=== PATIENT | male | born 1960 | race African-American/Black ===

== ENCOUNTER 2018-07-12 13:10 | Inpatient (IN) | payer OTHER ==
--- NOTE | 2018-07-12 14:25 | ER Document Report ---
ED Medical Screen (RME) - General Chief Complaint: Shortness Of Breath Stated Complaint: SHORTNESS OF BREATH Time Seen by Provider: 07/12/18 14:22 Mode of Arrival: Wheelchair Information source: Patient Notes: Patient was sent here from his primary doctor office for evaluation. Patient has had shortness of breath and chest pain with exertion for the past month. Patient is continue to work full-time. Patient has a low hemoglobin of 3, according to paperwork from his doctor's office I have greeted and performed a rapid initial assessment of this patient. A comprehensive ED assessment and evaluation of the patient, analysis of test results and completion of the medical decision making process will be conducted by additional ED providers. - Related Data Allergies/Adverse Reactions: No Known Allergies Allergy (Unverified 07/12/18 13:35) Physical Exam - Vital signs Vitals: Temp Pulse Resp BP Pulse Ox 98.1 F 68 18 147/92 H 100 07/12/18 13:58 07/12/18 13:58 07/12/18 13:58 07/12/18 13:58 07/12/18 13:58 - Respiratory Respiratory status: No respiratory distress Breath sounds: Normal Chest palpation: Normal Course - Vital Signs Vital signs: Temp Pulse Resp BP Pulse Ox 98.1 F 68 18 147/92 H 100 07/12/18 13:58 07/12/18 13:58 07/12/18 13:58 07/12/18 13:58 07/12/18 13:58
--- NOTE | 2018-07-12 15:20 | ER Document Report ---
ED General - General Chief Complaint: Shortness Of Breath Stated Complaint: SHORTNESS OF BREATH Time Seen by Provider: 07/12/18 14:22 Mode of Arrival: Wheelchair Notes: Patient is a 58-year-old male with history of colon cancer status post resection that presents to the emergency department for chief complaint of dyspnea on exertion and shortness of breath. Patient states that over the past month he has been having progressively worsened shortness of breath, particular with exertion since gotten worse over the past week. He has had occasional chest tightness associated with this, but denies any chest pain at this time. Denies any nausea, vomiting, diaphoresis, denies any lightheadedness, dizziness, denies any black or tarry stools. Denies any dysuria, hematuria or any other complaints at this time. Patient apparently was at urgent care today for the symptoms, they did blood work, that demonstrated a hemoglobin of 3.9, which was concerning so they advised him to come to the emergency department to be evaluated for this. Past Medical History: Colon cancer status post resection Past Surgical History: Colon resection Social History: Denies current tobacco, alcohol or drug use. Family History: Reviewed and noncontributory for presenting illness Allergies: Reviewed, see documented allergy list. REVIEW OF SYSTEMS: Other than noted above, the 12 point review of systems was reviewed with the patient and were negative, all pertinent findings are included in the HPI. PHYSICAL EXAMINATION: Vital signs reviewed, nursing noted reviewed. GENERAL: Well-appearing, well-nourished and in no acute distress. HEAD: Atraumatic, normocephalic. EYES: Eyes appear normal, extraocular movements intact, sclera anicteric, pale conjunctiva ENT: nares patent, oropharynx clear without exudates. Moist mucous membranes. NECK: Normal range of motion, supple without lymphadenopathy LUNGS: Breath sounds clear to auscultation bilaterally and equal. No wheezes rales or rhonchi. HEART: Regular rate and rhythm without murmurs ABDOMEN: Soft, obese, nontender, normoactive bowel sounds. No rebound, guardi ng, or rigidity. No masses appreciated. EXTREMITIES: Nontender, good range of motion, no pitting or edema. NEUROLOGICAL: No focal neurological deficits. Moves all extremities spontaneously Motor and sensory grossly intact on exam. PSYCH: Normal mood, normal affect. SKIN: Warm, Dry, normal turgor, pallor noted. - Related Data Allergies/Adverse Reactions: No Known Allergies Allergy (Unverified 07/12/18 13:35) Past Medical History - General Information source: Patient - Social History Smoking Status: Never Smoker Chew tobacco use (# tins/day): No Frequency of alcohol use: None Drug Abuse: None Family History: Reviewed & Not Pertinent Patient has suicidal ideation: No Patient has homicidal ideation: No Renal/ Medical History: Denies: Hx Peritoneal Dialysis Physical Exam - Vital signs Vitals: Temp Pulse Resp BP Pulse Ox 98.1 F 68 18 147/92 H 100 07/12/18 13:58 07/12/18 13:58 07/12/18 13:58 07/12/18 13:58 07/12/18 13:58 Course - Re-evaluation Re-evalutation: Patient seen and examined vital signs reviewed. Laboratory data and imaging were ordered as appropriate for the patient's presenting symptoms and complaint, with consideration of any critical or life threatening conditions that may be associated with their obtained history and exam as noted above. Patient was treated with blood transfusion, total of 4 units ordered. Results were reviewed when available and demonstrated severe anemia of 3.8, with a low MCV, concerning for slow GI blood loss, concerning for possible recurrence of the patient's colon cancer, patient is hemodynamically stable, I do not believe this is acute GI bleeding requiring immediate intervention, however the patient will need a significant amount of blood transfused, and would advise admission, patient is not opposed to blood transfusion, and this was ordered. The rest of his evaluation was essentially unremarkable, normal chest x-ray, normal BNP, normal troponin, EKG was nonischemic. The patient was re-evaluated and was stable Evaluation was most consistent with severe microcytic anemia, concerning for slow GI blood loss. Results were discussed with the patient at this point after careful consideration I feel that that patient should be admitted to the hospital. This was discussed with the patient that it is in the best interest for their care to be admitted for further evaluation and management. Patient agreed with this plan of care. A call was placed to the admitted physician, Dr. Lomas who graciously accepted the patient onto their service. *Note is created using voice recognition software and may contain spelling, syntax or grammatical errors. Laboratory 07/12/18 07/12/18 07/12/18 15:10 15:10 15:10 WBC Cancelled RBC Cancelled Hgb Cancelled Hct Cancelled MCV Cancelled MCH Cancelled MCHC Cancelled RDW Cancelled Plt Count Cancelled Seg Neutrophils % Cancelled Lymphocytes % Cancelled Monocytes % Cancelled Eosinophils % Cancelled Basophils % Cancelled Absolute Neutrophils Cancelled Absolute Lymphocytes Cancelled Absolute Monocytes Cancelled Absolute Eosinophils Cancelled Absolute Basophils Cancelled Platelet Estimate Cancelled PT Cancelled INR Cancelled APTT Cancelled Sodium 139.9 Potassium 4.7 Chloride 106 Carbon Dioxide 26 Anion Gap 8 BUN 17 Creatinine 1.28 H Est GFR ( Amer) > 60 Est GFR (Non-Af Amer) 58 L Glucose 77 Calcium 9.1 Total Bilirubin 0.2 Direct Bilirubin 0.2 Neonat Total Bilirubin Not Reportable Neonat Direct Bilirubin Not Reportable Neonat Indirect Bili Not Reportable AST 27 ALT 33 Alkaline Phosphatase 57 Troponin I NT-Pro-B Natriuret Pep Total Protein 6.5 Albumin 3.7 Slides for Path Review Cancelled Blood Type Antibody Screen Crossmatch 07/12/18 07/12/18 07/12/18 15:10 15:10 15:30 WBC RBC Hgb Hct MCV MCH MCHC RDW Plt Count Seg Neutrophils % Lymphocytes % Monocytes % Eosinophils % Basophils % Absolute Neutrophils Absolute Lymphocytes Absolute Monocytes Absolute Eosinophils Absolute Basophils Platelet Estimate PT Cancelled INR Cancelled APTT Cancelled Sodium Potassium Chloride Carbon Dioxide Anion Gap BUN Creatinine Est GFR ( Amer) Est GFR (Non-Af Amer) Glucose Calcium Total Bilirubin Direct Bilirubin Neonat Total Bilirubin Neonat Direct Bilirubin Neonat Indirect Bili AST ALT Alkaline Phosphatase Troponin I < 0.012 NT-Pro-B Natriuret Pep 304 Total Protein Albumin Slides for Path Review Blood Type O POSITIVE Antibody Screen NEGATIVE Crossmatch See Detail 07/12/18 17:04 WBC 4.2 RBC 1.99 L Hgb 3.8 L* Hct 13.4 L* MCV 67 L MCH 19.3 L MCHC 28.7 L RDW 20.0 H Plt Count 319 Seg Neutrophils % Not Reportable Lymphocytes % Not Reportable Monocytes % Not Reportable Eosinophils % Not Reportable Basophils % Not Reportable Absolute Neutrophils Not Reportable Absolute Lymphocytes Not Reportable Absolute Monocytes Not Reportable Absolute Eosinophils Not Reportable Absolute Basophils Not Reportable Platelet Estimate PT INR APTT Sodium Potassium Chloride Carbon Dioxide Anion Gap BUN Creatinine Est GFR ( Amer) Est GFR (Non-Af Amer) Glucose Calcium Total Bilirubin Direct Bilirubin Neonat Total Bilirubin Neonat Direct Bilirubin Neonat Indirect Bili AST ALT Alkaline Phosphatase Troponin I NT-Pro-B Natriuret Pep Total Protein Albumin Slides for Path Review Blood Type Antibody Screen Crossmatch Chest X-Ray 07/12/18 14:23 IMPRESSION: 1. No acute radiographic finding in the chest. 2. Moderate size hiatal hernia. - Vital Signs Vital signs: Temp Pulse Resp BP Pulse Ox 98.1 F 68 18 147/92 H 98 07/12/18 13:58 07/12/18 13:58 07/12/18 13:58 07/12/18 13:58 07/12/18 14:23 - Laboratory Result Diagrams: 07/12/18 17:04 07/12/18 15:10 Laboratory results interpreted by me: 07/12/18 07/12/18 07/12/18 15:10 15:10 17:04 RBC 1.99 L Hgb 3.8 L* Hct 13.4 L* MCV 67 L MCH 19.3 L MCHC 28.7 L RDW 20.0 H Creatinine 1.28 H Est GFR (Non-Af Amer) 58 L Crossmatch See Detail Critical Care Note - Critical Care Note Total time excluding time spent on procedures (mins): 35 Comments: Critical care time 35 minutes exclusive from separate billable procedures for a patient requiring complex medical decision making, and high potential for clinical deterioration. In a patient with severe anemia, suspected blood loss, with Hemoccult-positive requiring large PRBC blood transfusion. Time spent obtaining history from patient or surrogate, discussions with consultants, development of treatment plan with patient or surrogate, evaluation of patient's response to treatment, examination of patient, ordering and performing treatments and interventions, ordering and review of laboratory studies, re- evaluation of patient's condition, ordering and review of radiographic studies and review of old charts Discharge - Discharge Clinical Impression: Severe anemia, Blood loss anemia, Dyspnea on exertion Condition: Stable Disposition: ADMITTED INPATIENT Admitting Provider: Abebe (Hospitalist) Unit Admitted: Telemetry
[2018-07-12 16:14] LABS: ALANINE AMINOTRANSFERASE 33 U/L (21-72); ALBUMIN 3.7 g/dL (3.5-5.0); ALKALINE PHOSPHATASE 57 U/L (38-126); ANION GAP 8 (5-19); ASPARTATE AMINO TRANSFERASE 27 U/L (17-59); BILIRUBIN,DIRECT 0.2 mg/dL (0.0-0.4); BILIRUBIN,TOTAL 0.2 mg/dL (0.2-1.3); BLOOD UREA NITROGEN 17 mg/dL (7-20); CALCIUM 9.1 mg/dL (8.4-10.2); CARBON DIOXIDE 26 mmol/L (22-30); CHLORIDE 106 mmol/L (98-107); GLUCOSE 77 mg/dL (75-110); POTASSIUM 4.7 mmol/L (3.6-5.0); SODIUM 139.9 mmol/L (137-145); TOTAL PROTEIN 6.5 g/dL (6.3-8.2)
--- NOTE | 2018-07-12 16:20 | RADIOLOGY REPORT (SQ) ---
EXAM DESCRIPTION: CHEST 2 VIEWS COMPLETED DATE/TIME: 07/12/2018 3:55 pm REASON FOR STUDY: Shortness of breath COMPARISON: None. EXAM PARAMETERS: NUMBER OF VIEWS: two views TECHNIQUE: Digital Frontal and Lateral radiographic views of the chest acquired. RADIATION DOSE: NA LIMITATIONS: none FINDINGS: LUNGS AND PLEURA: No consolidation, pneumothorax or pleural effusion. MEDIASTINUM AND HILAR STRUCTURES: No masses or contour abnormalities. HEART AND VASCULAR STRUCTURES: Heart normal size. No evidence for failure. BONES: No acute findings. HARDWARE: None in the chest. OTHER: There is a moderate size hiatal hernia. IMPRESSION: 1. No acute radiographic finding in the chest. 2. Moderate size hiatal hernia. TECHNICAL DOCUMENTATION: JOB ID: [id number] 2010 [employer]- All Rights Reserved Reading location - IP/workstation name: [email or web address]
[2018-07-12 16:24] LABS: NT PRO BNP 304 pg/mL (5-900); TROPONIN I < 0.012 ng/mL
[2018-07-12 17:26] LABS: MEAN CORPUSCULAR HEMOGLOBIN 19.3 pg (27.0-33.4); MEAN CORPUSCULAR HGB CONC 28.7 g/dL (32.0-36.0); MEAN CORPUSCULAR VOLUME 67 fl (80-97); PLATELET COUNT 319 10^3/uL (150-450); RED BLOOD COUNT 1.99 10^6/uL (4.35-5.55); WHITE BLOOD COUNT 4.2 10^3/uL (4.0-10.5)
[2018-07-12 17:27] LABS: HEMATOCRIT 13.4 % (37.9-51.0)
[2018-07-12 17:30] LABS: INTERNATIONAL RATION (INR) 0.93; PROTHROMBIN TIME 12.9 SEC (11.4-15.4)
[2018-07-12 17:31] LABS: PARTIAL THROMBOPLASTIN TIME 26.9 SEC (23.5-35.8)
[2018-07-12] MEDS ORDERED: NORMAL SALINE 250 ML IV PRN (17:31)
[2018-07-12 17:37] LABS: HEMOGLOBIN 3.8 g/dL (13.5-17.0)
[2018-07-12] MEDS ORDERED: FUROSEMIDE INJ/PF 20 MG/2 ML SDV IV ONE (18:01)
[2018-07-12] MEDS ORDERED: ACETAMINOPHEN 325 MG TABLET PO PRN (18:12)
[2018-07-12] MEDS ORDERED: ONDANSETRON HCL INJ/PF 4 MG/2 ML SDV IV PRN (18:12)
--- NOTE | 2018-07-12 18:12 | PDOC H&P ---
History of Present Illness History of Present Illness: ADELAIDA CANO is a 58 year old black male patient with past medical history of hypertension and colon cancer status post resection presented with chief complaint of 2 weeks history of shortness of breath precipitated by exertion. Shortness of breath gets worsening the last 1 week. He has also intermittent chest tightness. His blood work shows markedly reduced hemoglobin of 3.8. His stool for occult blood is also turned positive. His chest x-ray is unremarkable. CT scan of the abdomen with contrast is pending. Otherwise patient denied any chills fever cough palpitation or diaphoresis. No nausea vomiting or abdominal pain. He has dizziness but no headache or blurry vision. No seizure activity. Social History Smoking Status: Never Smoker - Advance Directive Resuscitation Status: Full Code Family History Parental Family History Reviewed: Yes Children Family History Reviewed: Yes Sibling(s) Family History Reviewed.: Yes Medication/Allergy Allergies/Adverse Reactions: No Known Allergies Allergy (Unverified 07/12/18 13:35) Review of Systems Constitutional: ABSENT: chills, fever(s), headache(s), weight gain, weight loss Eyes: ABSENT: visual disturbances Ears: ABSENT: hearing changes Cardiovascular: PRESENT: dyspnea on exertion Respiratory: ABSENT: cough, hemoptysis Gastrointestinal: ABSENT: abdominal pain, constipation, diarrhea, hematemesis, hematochezia, nausea, vomiting Genitourinary: ABSENT: dysuria, hematuria Musculoskeletal: ABSENT: joint swelling Integumentary: ABSENT: rash, wounds Neurological: PRESENT: dizziness Psychiatric: ABSENT: anxiety, depression, homidical ideation, suicidal ideation Endocrine: ABSENT: cold intolerance, heat intolerance, polydipsia, polyuria Hematologic/Lymphatic: ABSENT: easy bleeding, easy bruising Physical Exam Vital Signs: Temp Pulse Resp BP Pulse Ox 98.1 F 68 18 147/92 H 98 07/12/18 13:58 07/12/18 13:58 07/12/18 13:58 07/12/18 13:58 07/12/18 14:23 Intake & Output 07/11/18 07/12/18 07/13/18 06:59 06:59 06:59 Weight 123.5 kg Eye exam: PRESENT: conjunctiva pale Neck exam: ABSENT: carotid bruit, JVD, lymphadenopathy, thyromegaly Respiratory exam: PRESENT: clear to auscultation franklin. ABSENT: rales, rhonchi, wheezes Cardiovascular exam: PRESENT: RRR. ABSENT: diastolic murmur, rubs, systolic murmur GI/Abdominal exam: PRESENT: normal bowel sounds, soft. ABSENT: distended, guarding, mass, organolmegaly, rebound, tenderness Neurological exam: PRESENT: alert, awake, oriented to time, oriented to situation Results Laboratory Results: 07/12/18 17:04 07/12/18 15:10 07/12/18 07/12/18 07/12/18 15:10 15:10 15:10 WBC Cancelled RBC Cancelled Hgb Cancelled Hct Cancelled MCV Cancelled MCH Cancelled MCHC Cancelled RDW Cancelled Plt Count Cancelled Seg Neutrophils % Cancelled Lymphocytes % Cancelled Monocytes % Cancelled Eosinophils % Cancelled Basophils % Cancelled Absolute Neutrophils Cancelled Absolute Lymphocytes Cancelled Absolute Monocytes Cancelled Absolute Eosinophils Cancelled Absolute Basophils Cancelled Sodium 139.9 Potassium 4.7 Chloride 106 Carbon Dioxide 26 Anion Gap 8 BUN 17 Creatinine 1.28 H Est GFR ( Amer) > 60 Est GFR (Non-Af Amer) 58 L Glucose 77 Calcium 9.1 Total Bilirubin 0.2 AST 27 ALT 33 Alkaline Phosphatase 57 Total Protein 6.5 Albumin 3.7 Blood Type O POSITIVE Antibody Screen NEGATIVE 07/12/18 17:04 WBC 4.2 RBC 1.99 L Hgb 3.8 L* Hct 13.4 L* MCV 67 L MCH 19.3 L MCHC 28.7 L RDW 20.0 H Plt Count 319 Seg Neutrophils % Not Reportable Lymphocytes % Not Reportable Monocytes % Not Reportable Eosinophils % Not Reportable Basophils % Not Reportable Absolute Neutrophils Not Reportable Absolute Lymphocytes Not Reportable Absolute Monocytes Not Reportable Absolute Eosinophils Not Reportable Absolute Basophils Not Reportable Sodium Potassium Chloride Carbon Dioxide Anion Gap BUN Creatinine Est GFR ( Amer) Est GFR (Non-Af Amer) Glucose Calcium Total Bilirubin AST ALT Alkaline Phosphatase Total Protein Albumin Blood Type Antibody Screen 07/12/18 15:10 Troponin I < 0.012 NT-Pro-B Natriuret Pep 304 Impressions: Chest X-Ray 07/12/18 14:23 IMPRESSION: 1. No acute radiographic finding in the chest. 2. Moderate size hiatal hernia. Assessment and Plan - Diagnosis (1) Acute on chronic blood loss anemia Is this a current diagnosis for this admission?: Yes Plan: His stool for occult blood is positive. His hemoglobin is 3.8. We will transfuse 2 units of packed RBC. We will trend his H&H. Patient might have recurrence of his CA of the colon. We will consult GI for possible colonoscopy. (2) GI (gastrointestinal bleed) Is this a current diagnosis for this admission?: Yes Plan: Most probably lower GI bleeding. (3) Hx of colon CA status post resection Is this a current diagnosis for this admission?: Yes Plan: In light of severe anemia and stool positive for occult blood the chance of recurrence of colitis is possible. CT scan of the abdomen is pending GI will be consulted. (4) Hypertension Qualifiers: Hypertension type: essential hypertension Qualified Code(s): I10 - Essential (primary) hypertension Is this a current diagnosis for this admission?: Yes Plan: Continue home medication. (5) Obesity (BMI 35.0-39.9 without comorbidity) Is this a current diagnosis for this admission?: Yes Plan: Lifestyle modification advised.
[2018-07-12 18:46] LABS: ABSOLUTE LYMPHOCYTES# (MANUAL) 1.8 10^3/uL (0.5-4.7); ABSOLUTE MONOCYTES # (MANUAL) 0.5 10^3/uL (0.1-1.4); ABSOLUTE NEUTROPHILS# (MANUAL) 1.9 10^3/uL (1.7-8.2); BAND NEUTROPHILS % (MANUAL) 1 % (3-5); BASOPHILS % (MANUAL) 2 % (0-2); EOSINOPHILS % (MANUAL) 0 % (0-6); LYMPHOCYTES % (MANUAL) 40 % (13-45); MONOCYTES % (MANUAL) 11 % (3-13); NUCLEATED RED BLOOD CELLS 1 /100 WBC (0); SEGMENTED NEUTROPHILS % (MAN) 44 % (42-78); TOTAL CELLS COUNTED 100
[2018-07-12 18:48] LABS: ANISOCYTOSIS 2+; HYPOCHROMASIA 3+; OVALOCYTES 1+; PLATELET COMMENT ADEQUATE; POLYCHROMASIA SLIGHT; SCHISTOCYTES SLIGHT; TEAR DROP CELLS 1+
--- NOTE | 2018-07-12 20:58 | RADIOLOGY REPORT (SQ) ---
CT ABDOMEN PELVIS WITH IV CONTRAST HISTORY: Abdominal pain. Severe anemia. History of colon cancer. COMPARISON: None. TECHNIQUE: CT scan of the abdomen and pelvis was performed with IV contrast. This exam was performed according to our departmental dose-optimization program, which includes automated exposure control, adjustment of the mA and/or kV according to patient size and/or use of iterative reconstruction technique. FINDINGS: The lung bases are clear without pleural or pericardial effusions. There is a moderate-sized sliding hiatal hernia. The liver, spleen, pancreas, gallbladder, adrenal glands, and kidneys are normal with a simple cyst in the right kidney. The prostate gland and seminal vesicles are unremarkable. Query mild wall thickening of the urinary bladder. There is a ventral hernia which contains portions of small bowel but without evidence of obstruction or incarceration. No evidence of acute diverticulitis. No intraperitoneal free fluid or free air is seen. Mild degenerative disc disease at L5-S1. No acute bony findings are seen. The aorta is normal caliber. IMPRESSION: 1. Ventral hernia containing small bowel loops but without bowel obstruction or incarceration. 2. Query mild inflammatory changes surrounding the urinary bladder; correlate with urinalysis to exclude UTI. 3. Moderate sliding hiatal hernia.
[2018-07-12] MEDS: PANTOPRAZOLE SODIUM 40 MG VIAL IV SCH (22:05)
--- NOTE | 2018-07-12 22:33 | EKG REPORT ---
SEVERITY:- BORDERLINE ECG - SINUS RHYTHM BORDERLINE T ABNORMALITIES, LATERAL LEADS : Confirmed by: Bianka Granados MD 12-Jul-2018 22:32:37
[2018-07-12] MEDS ORDERED: DEXTROSE 40% GEL 15 GM TUBE PO PRN ×2 (22:46)
[2018-07-12] MEDS ORDERED: GLUCAGON,HUMAN RECOMB 1 MG INJ SUBCUT PRN (22:46)
[2018-07-12] MEDS ORDERED: DEXTROSE 50%-WATER 25 GM/50 ML DISP.SYRIN IV PRN ×2 (22:46)
--- NOTE | 2018-07-13 00:18 | PDOC CONSULTATION ---
Consultation Consult Date: 07/12/18 Provider Consulted: DIANA WILLIAMSON Consult reason:: anemia with guiac positive stool History of Present Illness Admission Date/PCP: 07/12/18 18:27 History of Present Illness: ADELAIDA CANO is a 58 year old male who had colon carcinoma resected in 02/16/2017 in [place]. Had an attempted colon surgery in 12/12/2016 but had cardiac arrest during the procedure. He was resuscitated and the operation was aborted. After the colon resection, he was told that he was "cured". About a month ago, started getting progressively short winded with associated tachycardia and "burning" sensation on his left chest. Today went to an urgent care and referred to ED when noted to have a Hgb of 3.9. This was repeated and confirmed Hgb of 3.8. His stool is guiac positive. He denies gross blood in his stool nor dark stools though he does'nt usually check them. He is not on any blood thinner. Denies fever,chills, cough,headache nor dysuria or lightheadedness. Past Surgical History Past Surgical History: Reports: Other - colon resection for Carcinoma Social History Smoking Status: Former Smoker Number of Years Smokin Last Time Smoked: 03/05/2009 Frequency of Alcohol Use: Occasional Hx Recreational Drug Use: No Hx Prescription Drug Abuse: No - Advance Directive Resuscitation Status: Full Code Family History Family History: Reviewed & Not Pertinent Parental Family History Reviewed: Yes - mother of CVA and father from prostate CA both in their 80's Children Family History Reviewed: No Sibling(s) Family History Reviewed.: No Medication/Allergy Home Medications: Aspirin [Ecotrin 81 mg EC Tablet] 81 mg PO DAILY 07/12/18 Garlic 1 each PO DAILY 07/12/18 Potassium Gluconate 500 mg PO DAILY 07/12/18 Vitamin B Complex [B Complex] 1 each PO DAILY 07/12/18 Allergies/Adverse Reactions: No Known Allergies Allergy (Unverified 07/12/18 13:35) Review of Systems Constitutional: PRESENT: as per HPI Neurological: PRESENT: other - no pains Physical Exam Vital Signs: Temp Pulse Resp BP Pulse Ox 98.3 F 72 16 144/82 H 97 07/12/18 22:30 07/12/18 22:30 07/12/18 22:30 07/12/18 22:30 07/12/18 22:30 Intake & Output 07/11/18 07/12/18 07/13/18 06:59 06:59 06:59 Intake Total 350 Balance 350 Weight 123.5 kg General appearance: PRESENT: no acute distress, obese Head exam: PRESENT: atraumatic Eye exam: PRESENT: conjunctiva pale Mouth exam: PRESENT: moist Neck exam: PRESENT: full ROM Respiratory exam: PRESENT: clear to auscultation franklin Cardiovascular exam: PRESENT: RRR Pulses: PRESENT: normal radial pulses Vascular exam: PRESENT: normal capillary refill GI/Abdominal exam: PRESENT: soft - non tender Has a reducible incisional hernia non tender Rectal exam: PRESENT: heme (-) stool Extremities exam: PRESENT: full ROM Musculoskeletal exam: PRESENT: ambulatory Neurological exam: PRESENT: alert, oriented to person, oriented to place, oriented to time, oriented to situation Psychiatric exam: PRESENT: appropriate affect Skin exam: PRESENT: normal color, warm Results Laboratory Results: 07/12/18 17:04 07/12/18 15:10 07/12/18 07/12/18 07/12/18 15:10 15:10 15:10 WBC Cancelled RBC Cancelled Hgb Cancelled Hct Cancelled MCV Cancelled MCH Cancelled MCHC Cancelled RDW Cancelled Plt Count Cancelled Seg Neutrophils % Cancelled Lymphocytes % Cancelled Monocytes % Cancelled Eosinophils % Cancelled Basophils % Cancelled Absolute Neutrophils Cancelled Absolute Lymphocytes Cancelled Absolute Monocytes Cancelled Absolute Eosinophils Cancelled Absolute Basophils Cancelled Sodium 139.9 Potassium 4.7 Chloride 106 Carbon Dioxide 26 Anion Gap 8 BUN 17 Creatinine 1.28 H Est GFR ( Amer) > 60 Est GFR (Non-Af Amer) 58 L Glucose 77 Calcium 9.1 Total Bilirubin 0.2 AST 27 ALT 33 Alkaline Phosphatase 57 Total Protein 6.5 Albumin 3.7 Blood Type O POSITIVE Antibody Screen NEGATIVE 07/12/18 17:04 WBC 4.2 RBC 1.99 L Hgb 3.8 L* Hct 13.4 L* MCV 67 L MCH 19.3 L MCHC 28.7 L RDW 20.0 H Plt Count 319 Seg Neutrophils % Not Reportable Lymphocytes % Not Reportable Monocytes % Not Reportable Eosinophils % Not Reportable Basophils % Not Reportable Absolute Neutrophils Not Reportable Absolute Lymphocytes Not Reportable Absolute Monocytes Not Reportable Absolute Eosinophils Not Reportable Absolute Basophils Not Reportable Sodium Potassium Chloride Carbon Dioxide Anion Gap BUN Creatinine Est GFR ( Amer) Est GFR (Non-Af Amer) Glucose Calcium Total Bilirubin AST ALT Alkaline Phosphatase Total Protein Albumin Blood Type Antibody Screen 07/12/18 15:10 Troponin I < 0.012 NT-Pro-B Natriuret Pep 304 Impressions: Abdomen/Pelvis CT 07/12/18 00:00 IMPRESSION: 1. Ventral hernia containing small bowel loops but without bowel obstruction or incarceration. 2. Query mild inflammatory changes surrounding the urinary bladder; correlate with urinalysis to exclude UTI. 3. Moderate sliding hiatal hernia. Chest X-Ray 07/12/18 14:23 IMPRESSION: 1. No acute radiographic finding in the chest. 2. Moderate size hiatal hernia. Assessment & Plan - Diagnosis (1) Acute on chronic blood loss anemia Is this a current diagnosis for this admission?: Yes (2) GI (gastrointestinal bleed) Is this a current diagnosis for this admission?: Yes (3) Hx of colon CA status post resection Is this a current diagnosis for this admission?: Yes (4) Obesity (BMI 35.0-39.9 without comorbidity) Is this a current diagnosis for this admission?: Yes (5) Severe anemia Is this a current diagnosis for this admission?: Yes - Time Time Spent: 30 to 50 Minutes - Inpatient Certification Medical Necessity: Need Close Monitoring Due to Risk of Patient Decompensation, Need For IV Fluids, Risk of Complication if Not Cared For in Hospital - Plan Summary Plan Summary: Patient has chronic slow GI bleed causing his severe microcytic anemia Will be transfused Will eventually need at least a colonoscopy but no emergent need at this time Will inform Dr Vaughan tomorrow. Will need a bowel prep prior to colonoscopy OK to give clear liquids at this time
[2018-07-13] MEDS ORDERED: FUROSEMIDE INJ/PF 20 MG/2 ML SDV IV ONE (02:30)
[2018-07-13 06:09] LABS: ANION GAP 7 (5-19); BLOOD UREA NITROGEN 15 mg/dL (7-20); CALCIUM 9.2 mg/dL (8.4-10.2); CARBON DIOXIDE 28 mmol/L (22-30); CHLORIDE 105 mmol/L (98-107); CHOLESTEROL 144.46 mg/dL (0-200); GLUCOSE 85 mg/dL (75-110); POTASSIUM 4.7 mmol/L (3.6-5.0); SODIUM 140.4 mmol/L (137-145); TRIGLYCERIDES 90 mg/dL (<150)
[2018-07-13 06:20] LABS: DIRECT LDL 75 mg/dL (<100)
[2018-07-13] MEDS ORDERED: DEXTROSE 50%-WATER 25 GM/50 ML DISP.SYRIN IV PRN ×2 (09:06)
[2018-07-13] MEDS ORDERED: GLUCAGON,HUMAN RECOMB 1 MG INJ SUBCUT PRN (09:06)
[2018-07-13] MEDS ORDERED: DEXTROSE 40% GEL 15 GM TUBE PO PRN ×2 (09:06)
[2018-07-13 09:36] LABS: HEMATOCRIT 23.2 % (37.9-51.0); MEAN CORPUSCULAR HGB CONC 31.4 g/dL (32.0-36.0); PLATELET COUNT 297 10^3/uL (150-450); RED BLOOD COUNT 3.18 10^6/uL (4.35-5.55); RED CELL DISTRIBUTION WIDTH 22.2 % (11.5-14.0); WHITE BLOOD COUNT 4.8 10^3/uL (4.0-10.5)
[2018-07-13 09:39] LABS: MEAN CORPUSCULAR VOLUME 73 fl (80-97)
[2018-07-13 09:55] LABS: HEMOGLOBIN 7.3 g/dL (13.5-17.0)
[2018-07-13] MEDS ORDERED: PEG 3350/NA SULF,BICARB,CL/KCL 4000 ML PO ONE (10:00)
--- NOTE | 2018-07-13 11:05 | PDOC PROGRESS REPORT ---
Subjective Progress Note for:: 07/13/18 Subjective:: ADELAIDA CANO is a 58 year old male who had colon carcinoma resected in 02/16/2017 in [place]. Had an attempted colon surgery in 12/12/2016 but had cardiac arrest during the procedure. He was resuscitated and the operation was aborted. After the colon resection, he was told that he was "cured". About a month ago, started getting progressively short winded with associated tachycardia and "burning" sensation on his left chest. Today went to an urgent care and referred to ED when noted to have a Hgb of 3.9. This was repeated and confirmed Hgb of 3.8. His stool is guiac positive. He denies gross blood in his stool nor dark stools though he does'nt usually check them. He is not on any blood thinner. Denies fever,chills, cough,headache nor dysuria or lightheadedne ss. 07/13/2018. No acute events overnight. Patient status post 3 PRBC transfusion hemoglobin has trended up to 7.3, pending another rest PRBC transfusion. Most of breath have improved, patient denies any fever, chills, nausea, vomiting, diarrhea, constipation or any urinary symptoms. Surgery has been consulted patient will possibly get an colonoscopy tomorrow. Note: Pt was seen by Dr Helms. Will go ahead and cancel my note Reason For Visit: SEVERE ANEMIA Physical Exam Vital Signs: Temp Pulse Resp BP Pulse Ox 98.4 F 68 18 153/83 H 100 07/13/18 08:20 07/13/18 08:20 07/13/18 08:20 07/13/18 08:20 07/13/18 08:20 Intake & Output 07/12/18 07/13/18 07/14/18 06:59 06:59 06:59 Intake Total 790 450 Output Total 400 Balance 390 450 Weight 123.6 kg General appearance: PRESENT: no acute distress, obese, well-developed, well- nourished Head exam: PRESENT: atraumatic, normocephalic Eye exam: PRESENT: conjunctiva pink, EOMI, PERRLA. ABSENT: scleral icterus Ear exam: PRESENT: normal external ear exam Mouth exam: PRESENT: moist, tongue midline Neck exam: ABSENT: carotid bruit, JVD, lymphadenopathy, thyromegaly Respiratory exam: PRESENT: clear to auscultation franklin. ABSENT: rales, rhonchi, wheezes Cardiovascular exam: PRESENT: RRR. ABSENT: diastolic murmur, rubs, systolic murmur Pulses: PRESENT: normal dorsalis pedis pul Vascular exam: PRESENT: normal capillary refill GI/Abdominal exam: PRESENT: normal bowel sounds, soft. ABSENT: distended, guarding, mass, organolmegaly, rebound, tenderness Rectal exam: PRESENT: deferred Extremities exam: PRESENT: full ROM. ABSENT: calf tenderness, clubbing, pedal edema Neurological exam: PRESENT: alert, awake, oriented to person, oriented to place, oriented to time, oriented to situation, CN II-XII grossly intact. ABSENT: motor sensory deficit Psychiatric exam: PRESENT: appropriate affect, normal mood. ABSENT: homicidal ideation, suicidal ideation Skin exam: PRESENT: dry, intact, warm. ABSENT: cyanosis, rash Results Laboratory Results: 07/13/18 09:13 07/13/18 05:17 07/12/18 07/12/18 07/12/18 15:10 15:10 15:10 WBC Cancelled RBC Cancelled Hgb Cancelled Hct Cancelled MCV Cancelled MCH Cancelled MCHC Cancelled RDW Cancelled Plt Count Cancelled Seg Neutrophils % Cancelled Lymphocytes % Cancelled Monocytes % Cancelled Eosinophils % Cancelled Basophils % Cancelled Absolute Neutrophils Cancelled Absolute Lymphocytes Cancelled Absolute Monocytes Cancelled Absolute Eosinophils Cancelled Absolute Basophils Cancelled Sodium 139.9 Potassium 4.7 Chloride 106 Carbon Dioxide 26 Anion Gap 8 BUN 17 Creatinine 1.28 H Est GFR ( Amer) > 60 Est GFR (Non-Af Amer) 58 L Glucose 77 Calcium 9.1 Total Bilirubin 0.2 AST 27 ALT 33 Alkaline Phosphatase 57 Total Protein 6.5 Albumin 3.7 Triglycerides Cholesterol LDL Cholesterol Direct VLDL Cholesterol HDL Cholesterol Blood Type O POSITIVE Antibody Screen NEGATIVE 07/12/18 07/13/18 07/13/18 17:04 05:17 09:13 WBC 4.2 4.8 RBC 1.99 L 3.18 L Hgb 3.8 L* 7.3 L D Hct 13.4 L* 23.2 L MCV 67 L 73 L D MCH 19.3 L 23.0 L MCHC 28.7 L 31.4 L RDW 20.0 H 22.2 H Plt Count 319 297 Seg Neutrophils % Not Reportable Lymphocytes % Not Reportable Monocytes % Not Reportable Eosinophils % Not Reportable Basophils % Not Reportable Absolute Neutrophils Not Reportable Absolute Lymphocytes Not Reportable Absolute Monocytes Not Reportable Absolute Eosinophils Not Reportable Absolute Basophils Not Reportable Sodium 140.4 Potassium 4.7 Chloride 105 Carbon Dioxide 28 Anion Gap 7 BUN 15 Creatinine 1.28 H Est GFR ( Amer) > 60 Est GFR (Non-Af Amer) 58 L Glucose 85 Calcium 9.2 Total Bilirubin AST ALT Alkaline Phosphatase Total Protein Albumin Triglycerides 90 Cholesterol 144.46 LDL Cholesterol Direct 75 VLDL Cholesterol 18.0 HDL Cholesterol 40 Blood Type Antibody Screen 07/12/18 15:10 Troponin I < 0.012 NT-Pro-B Natriuret Pep 304 Impressions: Abdomen/Pelvis CT 07/12/18 00:00 IMPRESSION: 1. Ventral hernia containing small bowel loops but without bowel obstruction or incarceration. 2. Query mild inflammatory changes surrounding the urinary bladder; correlate with urinalysis to exclude UTI. 3. Moderate sliding hiatal hernia. Chest X-Ray 07/12/18 14:23 IMPRESSION: 1. No acute radiographic finding in the chest. 2. Moderate size hiatal hernia. Assessment and Plan - Diagnosis (1) Acute on chronic blood loss anemia Is this a current diagnosis for this admission?: Yes Plan: Most likely chronic GI bleed. Hemoglobin on admission 3.8. Stool guaiac positive. Patient does not know if he has melanotic stool as he has not checked his stool. Denies hematemesis, hemoptysis, hematuria, hematochezia, nosebleeds or any bleeding tendency. 07/13/2018: Hgb 7.3 up from 3.8 on admission status post 3 PRBC transfusion History of colonic cancer status post resection. 07/12/2018: CT abdomen/pelvis: 1. Ventral hernia containing small bowel loops but without bowel obstruction or incarceration. 2. Query mild inflammatory changes surrounding the urinary bladder; correlate with urinalysis to exclude UTI. 3. Moderate sliding hiatal hernia. Pending 1 PRBC transfusion. H&H, supportive transfusion, keep hemoglobin above 8. Surgery consult, possible endoscopy/colonoscopy. (2) KELLY (acute kidney injury) Is this a current diagnosis for this admission?: Yes Plan: No previous records available. Patient does have history of hypertension which may be a contributor. Denies nephrotoxic meds intake. 07/13/2018: Sodium 140.4 potassium 4.7, bicarb 28, creatinine 1.28, A1c 4.9%, Renal Ultrasound, FeNa. IV fluid resuscitation guided by volume status. If does not improve will consult nephrology. (3) GI (gastrointestinal bleed) Is this a current diagnosis for this admission?: Yes Plan: As per problem #1. (4) Hx of colon CA status post resection Is this a current diagnosis for this admission?: Yes Plan: History of colonic cancer status post resection. As per patient he was told he has been cured. Patient oncology/GI follow-up. 07/12/2018: CT abdomen/pelvis: 1. Ventral hernia containing small bowel loops but without bowel obstruction or incarceration. 2. Query mild inflammatory changes surrounding the urinary bladder; correlate with urinalysis to exclude UTI. 3. Moderate sliding hiatal hernia. (5) Hypertension Qualifiers: Hypertension type: essential hypertension Qualified Code(s): I10 - Essential (primary) hypertension Is this a current diagnosis for this admission?: Yes Plan: Euvolemic. SBP 392212 Start on hydrochlorothiazide 25 mg p.o. daily. Monitor vitals, adjust dosage as needed. Note: Lipid panel and A1c within normal limits. (6) Obesity (BMI 35.0-39.9 without comorbidity) Is this a current diagnosis for this admission?: Yes Plan: Lifestyle modification advised. Note: Lipid panel and hemoglobin A1c within normal limits.
[2018-07-13] MEDS ORDERED: NORMAL SALINE 250 ML IV PRN ×2 (11:08)
--- NOTE | 2018-07-13 11:13 | PDOC PROGRESS REPORT ---
Subjective Progress Note for:: 07/13/18 Subjective:: Patient has no complaints; has received 3 units of packed red blood cells patient denies blood per rectum or hematemesis; he states he does not inspect his stools. He is 2 years status post colon resection, partial, in [place] for early stage cancer; records are available electronically. Patient has not had surveillance colonoscopy since then. Reason For Visit: SEVERE ANEMIA Physical Exam Vital Signs: Temp Pulse Resp BP Pulse Ox 98.4 F 68 18 153/83 H 100 07/13/18 08:20 07/13/18 08:20 07/13/18 08:20 07/13/18 08:20 07/13/18 08:20 Intake & Output 07/12/18 07/13/18 07/14/18 06:59 06:59 06:59 Intake Total 790 450 Output Total 400 Balance 390 450 Weight 123.6 kg General appearance: PRESENT: no acute distress GI/Abdominal exam: PRESENT: other - Abdomen soft nontender well-healed are consistent with previous surgery. No apparent hernia. Results Laboratory Results: 07/13/18 09:13 07/13/18 05:17 07/12/18 07/12/18 07/12/18 15:10 15:10 15:10 WBC Cancelled RBC Cancelled Hgb Cancelled Hct Cancelled MCV Cancelled MCH Cancelled MCHC Cancelled RDW Cancelled Plt Count Cancelled Seg Neutrophils % Cancelled Lymphocytes % Cancelled Monocytes % Cancelled Eosinophils % Cancelled Basophils % Cancelled Absolute Neutrophils Cancelled Absolute Lymphocytes Cancelled Absolute Monocytes Cancelled Absolute Eosinophils Cancelled Absolute Basophils Cancelled Sodium 139.9 Potassium 4.7 Chloride 106 Carbon Dioxide 26 Anion Gap 8 BUN 17 Creatinine 1.28 H Est GFR ( Amer) > 60 Est GFR (Non-Af Amer) 58 L Glucose 77 Calcium 9.1 Total Bilirubin 0.2 AST 27 ALT 33 Alkaline Phosphatase 57 Total Protein 6.5 Albumin 3.7 Triglycerides Cholesterol LDL Cholesterol Direct VLDL Cholesterol HDL Cholesterol Blood Type O POSITIVE Antibody Screen NEGATIVE 07/12/18 07/13/18 07/13/18 17:04 05: 09:13 WBC 4.2 4.8 RBC 1.99 L 3.18 L Hgb 3.8 L* 7.3 L D Hct 13.4 L* 23.2 L MCV 67 L 73 L D MCH 19.3 L 23.0 L MCHC 28.7 L 31.4 L RDW 20.0 H 22.2 H Plt Count 319 297 Seg Neutrophils % Not Reportable Lymphocytes % Not Reportable Monocytes % Not Reportable Eosinophils % Not Reportable Basophils % Not Reportable Absolute Neutrophils Not Reportable Absolute Lymphocytes Not Reportable Absolute Monocytes Not Reportable Absolute Eosinophils Not Reportable Absolute Basophils Not Reportable Sodium 140.4 Potassium 4.7 Chloride 105 Carbon Dioxide 28 Anion Gap 7 BUN 15 Creatinine 1.28 H Est GFR ( Amer) > 60 Est GFR (Non-Af Amer) 58 L Glucose 85 Calcium 9.2 Total Bilirubin AST ALT Alkaline Phosphatase Total Protein Albumin Triglycerides 90 Cholesterol 144.46 LDL Cholesterol Direct 75 VLDL Cholesterol 18.0 HDL Cholesterol 40 Blood Type Antibody Screen 07/12/18 15:10 Troponin I < 0.012 NT-Pro-B Natriuret Pep 304 Impressions: Abdomen/Pelvis CT 07/12/18 00:00 IMPRESSION: 1. Ventral hernia containing small bowel loops but without bowel obstruction or incarceration. 2. Query mild inflammatory changes surrounding the urinary bladder; correlate with urinalysis to exclude UTI. 3. Moderate sliding hiatal hernia. Chest X-Ray 07/12/18 14:23 IMPRESSION: 1. No acute radiographic finding in the chest. 2. Moderate size hiatal hernia. Assessment & Plan - Plan Summary Plan Summary: Impression: Severe anemia presumably from occult GI bleed, hemodynamically stable, hemoglobin now up to 7.3 from 3.8 after 3 units of packed red blood cells. Recommendations: 1. Discussed findings above with patient. He agrees undergo upper and lower endoscopy; we will set this up for tomorrow with a complete bowel prep today. He can be on clear liquids, then n.p.o. after midnight. 2. I have reviewed the risk benefits and alternatives to the planned procedure. Expressed his understanding and agrees to proceed.
[2018-07-13] MEDS ORDERED: DEXTROSE 5%-NORMAL SALINE 1,000 ML IV PRN (11:17)
[2018-07-13] MEDS: DOCUSATE SODIUM 100 MG CAPSULE PO SCH ×2 (11:28→18:40)
[2018-07-13] MEDS: PANTOPRAZOLE SODIUM 40 MG VIAL IV SCH ×2 (11:28→21:39)
[2018-07-13] MEDS: HYDROCHLOROTHIAZIDE 25 MG TABLET PO SCH (12:34)
--- NOTE | 2018-07-13 13:12 | PDOC PROGRESS REPORT ---
Subjective Progress Note for:: 07/13/18 Subjective:: This is 58 years old black male patient who presented with chronic history of shortness of breath precipitated by exertion. Patient does not have any underlying cardiac or pulmonary disease. His past medical history significant for hypertension and early stage colon CA status post partial colectomy which was done 2 years ago. He states that he is "cancer free". At presentation his hemoglobin is 3.8 and after 3 units of PRBC his hemoglobin picked up to 7.3. He is a stool for occult blood is positive. Dr. Holley has evaluated the patient and schedule him for upper endoscopy and colonoscopy tomorrow. I seen patient resting in bed comfortably. He reports his shortness of breath has relatively improved. Reason For Visit: SEVERE ANEMIA Physical Exam Vital Signs: Temp Pulse Resp BP Pulse Ox 99 F 64 16 157/87 H 100 07/13/18 11:54 07/13/18 11:54 07/13/18 11:54 07/13/18 11:54 07/13/18 11:54 Intake & Output 07/12/18 07/13/18 07/14/18 06:59 06:59 06:59 Intake Total 790 450 Output Total 400 Balance 390 450 Weight 123.6 kg General appearance: PRESENT: obese Head exam: PRESENT: atraumatic Eye exam: PRESENT: conjunctiva pale Teeth exam: PRESENT: poor dentation Respiratory exam: PRESENT: clear to auscultation franklin. ABSENT: rales, rhonchi, wheezes Cardiovascular exam: PRESENT: RRR. ABSENT: diastolic murmur, rubs, systolic murmur GI/Abdominal exam: PRESENT: normal bowel sounds, soft. ABSENT: distended, guarding, mass, organolmegaly, rebound, tenderness Neurological exam: PRESENT: alert, awake, oriented to time, oriented to situation Results Laboratory Results: 07/13/18 09:13 07/13/18 05:17 07/12/18 07/12/18 07/12/18 15:10 15:10 15:10 WBC Cancelled RBC Cancelled Hgb Cancelled Hct Cancelled MCV Cancelled MCH Cancelled MCHC Cancelled RDW Cancelled Plt Count Cancelled Seg Neutrophils % Cancelled Lymphocytes % Cancelled Monocytes % Cancelled Eosinophils % Cancelled Basophils % Cancelled Absolute Neutrophils Cancelled Absolute Lymphocytes Cancelled Absolute Monocytes Cancelled Absolute Eosinophils Cancelled Absolute Basophils Cancelled Sodium 139.9 Potassium 4.7 Chloride 106 Carbon Dioxide 26 Anion Gap 8 BUN 17 Creatinine 1.28 H Est GFR ( Amer) > 60 Est GFR (Non-Af Amer) 58 L Glucose 77 Calcium 9.1 Total Bilirubin 0.2 AST 27 ALT 33 Alkaline Phosphatase 57 Total Protein 6.5 Albumin 3.7 Triglycerides Cholesterol LDL Cholesterol Direct VLDL Cholesterol HDL Cholesterol Blood Type O POSITIVE Antibody Screen NEGATIVE 07/12/18 07/13/18 07/13/18 17:04 05:17 09:13 WBC 4.2 4.8 RBC 1.99 L 3.18 L Hgb 3.8 L* 7.3 L D Hct 13.4 L* 23.2 L MCV 67 L 73 L D MCH 19.3 L 23.0 L MCHC 28.7 L 31.4 L RDW 20.0 H 22.2 H Plt Count 319 297 Seg Neutrophils % Not Reportable Lymphocytes % Not Reportable Monocytes % Not Reportable Eosinophils % Not Reportable Basophils % Not Reportable Absolute Neutrophils Not Reportable Absolute Lymphocytes Not Reportable Absolute Monocytes Not Reportable Absolute Eosinophils Not Reportable Absolute Basophils Not Reportable Sodium 140.4 Potassium 4.7 Chloride 105 Carbon Dioxide 28 Anion Gap 7 BUN 15 Creatinine 1.28 H Est GFR ( Amer) > 60 Est GFR (Non-Af Amer) 58 L Glucose 85 Calcium 9.2 Total Bilirubin AST ALT Alkaline Phosphatase Total Protein Albumin Triglycerides 90 Cholesterol 144.46 LDL Cholesterol Direct 75 VLDL Cholesterol 18.0 HDL Cholesterol 40 Blood Type Antibody Screen 07/12/18 15:10 Troponin I < 0.012 NT-Pro-B Natriuret Pep 304 Impressions: Abdomen/Pelvis CT 07/12/18 00:00 IMPRESSION: 1. Ventral hernia containing small bowel loops but without bowel obstruction or incarceration. 2. Query mild inflammatory changes surrounding the urinary bladder; correlate with urinalysis to exclude UTI. 3. Moderate sliding hiatal hernia. Chest X-Ray 07/12/18 14:23 IMPRESSION: 1. No acute radiographic finding in the chest. 2. Moderate size hiatal hernia. Assessment and Plan - Diagnosis (1) Acute on chronic blood loss anemia Is this a current diagnosis for this admission?: Yes Plan: Status post 3 packed RBC transfusion. Hemoglobin peaked up to 7.3. Patient scheduled for upper and lower endoscopy. (2) GI (gastrointestinal bleed) Is this a current diagnosis for this admission?: Yes Plan: As per problem #1. (3) Hx of colon CA status post resection Is this a current diagnosis for this admission?: Yes Plan: History of colonic cancer status post resection. As per patient he was told he has been cured. Patient oncology/GI follow-up. 07/12/2018: CT abdomen/pelvis: 1. Ventral hernia containing small bowel loops but without bowel obstruction or incarceration. 2. Query mild inflammatory changes surrounding the urinary bladder; correlate with urinalysis to exclude UTI. 3. Moderate sliding hiatal hernia. (4) Hypertension Qualifiers: Hypertension type: essential hypertension Qualified Code(s): I10 - Essential (primary) hypertension Is this a current diagnosis for this admission?: Yes Plan: Euvolemic. SBP [id number] Start on hydrochlorothiazide 25 mg p.o. daily. Monitor vitals, adjust dosage as needed. Note: Lipid panel and A1c within normal limits. (5) Obesity (BMI 35.0-39.9 without comorbidity) Is this a current diagnosis for this admission?: Yes Plan: Lifestyle modification advised. Note: Lipid panel and hemoglobin A1c within normal limits.
--- NOTE | 2018-07-13 16:42 | RADIOLOGY REPORT (SQ) ---
EXAM DESCRIPTION: U/S RETROPERITON (RENAL/AORTA) COMPLETED DATE/TIME: 07/13/2018 4:28 pm REASON FOR STUDY: KELLY COMPARISON: CT abdomen pelvis with IV contrast 07/12/2018 TECHNIQUE: Dynamic and static grayscale images acquired of the kidneys and bladder and recorded on P ACS. Additional selected color Doppler and spectral images recorded. LIMITATIONS: Patient body habitus FINDINGS: RIGHT KIDNEY: Normal size, 10 cm in length. Normal echogenicity. No solid or suspicious ma sses. No hydronephrosis. No calcifications. LEFT KIDNEY: Normal size, 11 cm in length. Normal echogenicity. No solid or suspicious masses. No hy dronephrosis. No calcifications. BLADDER: Decompressed, not well seen OTHER FINDINGS: No other significant finding. IMPRESSION: No hydronephrosis, normal size kidneys with grossly normal cortical thickness and echoge nicity TECHNICAL DOCUMENTATION: JOB ID: [id number] [employer]- All Rights Reserved Reading location - IP/workstation name: [email or web address]
[2018-07-13 17:53] LABS: HEMATOCRIT 27.3 % (37.9-51.0); HEMOGLOBIN 8.7 g/dL (13.5-17.0); MEAN CORPUSCULAR HEMOGLOBIN 23.9 pg (27.0-33.4); MEAN CORPUSCULAR HGB CONC 31.8 g/dL (32.0-36.0); MEAN CORPUSCULAR VOLUME 75 fl (80-97); PLATELET COUNT 300 10^3/uL (150-450); RED BLOOD COUNT 3.62 10^6/uL (4.35-5.55); RED CELL DISTRIBUTION WIDTH 23.1 % (11.5-14.0); WHITE BLOOD COUNT 5.6 10^3/uL (4.0-10.5)
[2018-07-13 18:21] LABS: ABSOLUTE LYMPHOCYTES# (MANUAL) 1.3 10^3/uL (0.5-4.7); ABSOLUTE MONOCYTES # (MANUAL) 0.1 10^3/uL (0.1-1.4); ABSOLUTE NEUTROPHILS# (MANUAL) 4.2 10^3/uL (1.7-8.2); BASOPHILS % (MANUAL) 0 % (0-2); EOSINOPHILS % (MANUAL) 0 % (0-6); LYMPHOCYTES % (MANUAL) 23 % (13-45); MONOCYTES % (MANUAL) 2 % (3-13); NUCLEATED RED BLOOD CELLS 1 /100 WBC (0); SEGMENTED NEUTROPHILS % (MAN) 75 % (42-78); TOTAL CELLS COUNTED 100
[2018-07-13 18:22] LABS: POLYCHROMASIA SLIGHT
[2018-07-13 18:23] LABS: ANISOCYTOSIS 3+; HYPOCHROMASIA 1+; OVALOCYTES SLIGHT; PLATELET COMMENT ADEQUATE; POIKILOCYTOSIS 1+; TARGET CELLS SLIGHT
[2018-07-14 04:20] LABS: URINE CREATININE 76.9 mg/dL (22-328)
[2018-07-14 07:06] LABS: HEMATOCRIT 28.9 % (37.9-51.0); HEMOGLOBIN 9.3 g/dL (13.5-17.0); MEAN CORPUSCULAR HGB CONC 32.1 g/dL (32.0-36.0); MEAN CORPUSCULAR VOLUME 75 fl (80-97); PLATELET COUNT 329 10^3/uL (150-450); RED BLOOD COUNT 3.87 10^6/uL (4.35-5.55); RED CELL DISTRIBUTION WIDTH 23.3 % (11.5-14.0); WHITE BLOOD COUNT 5.5 10^3/uL (4.0-10.5)
[2018-07-14] MEDS ORDERED: DIPHENHYDRAMINE HCL 50 MG/ML VIAL ONE (08:06)
[2018-07-14] MEDS ORDERED: NALOXONE HCL INJ/PF 0.4 MG/1 ML SDV ONE (08:06)
[2018-07-14] MEDS ORDERED: ONDANSETRON HCL INJ/PF 4 MG/2 ML SDV ONE (08:06)
[2018-07-14] MEDS ORDERED: FLUMAZENIL INJ 0.5 MG/5 ML VIAL ONE (08:07)
[2018-07-14] MEDS ORDERED: GLUCAGON,HUMAN RECOMB 1 MG INJ ONE (08:07)
[2018-07-14] MEDS ORDERED: EPINEPHRINE INJ 1 MG/10 ML DISP.SYRIN ONE (08:07)
[2018-07-14] MEDS: MIDAZOLAM 2 MG/2 ML INJ ONE ×3 (08:22→08:42)
[2018-07-14] MEDS: FENTANYL CITRATE INJ/PF 100 MCG/2 ML AMPUL ONE ×2 (08:24→08:58)
--- NOTE | 2018-07-14 09:22 | Operative Report ---
Operative Report DATE OF SURGERY: 07/14/18 PREOPERATIVE DIAGNOSIS: 1. Acute blood loss anemia. 2. History of right williams colectomy for early stage colon cancer POSTOPERATIVE DIAGNOSIS: 1. No evidence of upper or lower GI bleed or clot. 2. Small hiatal hernia. 3. Intact ileal colonic anastomosis with no evidence of tumor recurrence. 4. Benign prostatic hypertrophy OPERATION: 1. Esophagogastroduodenoscopy. 2. Colonoscopy to ileocolonic anastomosis. SURGEON: DIO FLORES ANESTHESIA: Moderate Sedation TISSUE REMOVED OR ALTERED: None COMPLICATIONS: none ESTIMATED BLOOD LOSS: scant INTRAOPERATIVE FINDINGS: See below PROCEDURE: The patient was taken of the fifth floor to the endoscopy suite where monitoring devices were attached, patient placed in semirecumbent position, conscious sedation induced. Surgical plan surgical timeout conducted. The oral mouthpiece was inserted. Possible adult upper endoscope was advanced to the hypopharynx, through the esophagus, stomach and then into the first and second portions of the duodenum. Patient had a significant amount of oral secretions and some blocking early on the procedure but this settled down after a few moments. The duodenum was normal. We advanced the scope back and forth through the pylorus which appeared normal. The stomach was grossly unremarkable. There was no evidence of tumor polyp bleeding stricture or clot. The scope was retroflexed stomach looking at the GE junction. There is a small hiatal hernia. Photos are taken. Again no evidence of bleeding identified. The scope was brought back to the GE junction, and the esophagus which showed no evidence of tumor stricture, bleeding or varix. The scope was withdrawn to the patient's oropharynx. He tolerated this portion of the procedure well Instrumentation was set up for colonoscopy. Plan and surgical timeout were conducted The patient was placed in the left lateral decubitus position with knees to chest. A perianal examination was performed. There was no visible or palpable anorectal pathology. The prostate gland was enlarged consistent with benign prostatic hypertrophy sphincter tone was felt to be normal. The flexible adult colonoscope was advanced through the anal rectal canal, all the way to the ileocolonic anastomosis. Photos were taken. There was no evidence of tumor recurrence. This was an excellent study on the well-prepped bowel. The colonoscope was withdrawn slowly and methodically checked and the mucosa carefully. There was no evidence of tumor, stricture, bleeding or polyp. Is no evidence of bleeding or clot. The mucosa appeared completely normal. There was no evidence of diverticuloses. The scope was slowly withdrawn through the anal rectal canal. Complete visualization of the rectum was achieved with photodocumentation. The scope was withdrawn to the patient's anus. The patient tolerated the procedure well and was taken to the recovery area in stable condition. Per surveillance guidelines, patient be appropriate candidate for follow-up colonoscopy in 5 years; with regards to acute blood loss anemia, he may require small bowel follow-through evaluation of the small bowel again. This was discussed with the hospitalist. Surgery will sign off; please reconsult if clinically indicated.
[2018-07-14] MEDS: HYDROCHLOROTHIAZIDE 25 MG TABLET PO SCH (10:13)
[2018-07-14] MEDS: PANTOPRAZOLE SODIUM 40 MG VIAL IV SCH (10:14)
[2018-07-14] MEDS: DOCUSATE SODIUM 100 MG CAPSULE PO SCH (10:14)
[2018-07-14] MEDS ORDERED: HYDRALAZINE HCL INJ/PF 20 MG/1 ML SDV IV ONE (10:45)
--- NOTE | 2018-07-14 11:38 | PDOC DISCHARGE SUMMARY ---
General - Admit/Disc Date/PCP Admission Date/Primary Care Provider: 07/12/18 18:27 Discharge Date: 07/14/18 - Discharge Diagnosis (1) Acute on chronic blood loss anemia Is this a current diagnosis for this admission?: Yes (2) GI (gastrointestinal bleed) Is this a current diagnosis for this admission?: Yes (3) Hx of colon CA status post resection Is this a current diagnosis for this admission?: Yes (4) Hypertension Is this a current diagnosis for this admission?: Yes (5) Obesity (BMI 35.0-39.9 without comorbidity) Is this a current diagnosis for this admission?: Yes - Additional Information Resuscitation Status: Full Code Home Medications: Aspirin [Ecotrin 81 mg EC Tablet] 81 mg PO DAILY 07/12/18 Garlic 1 each PO DAILY 07/12/18 Potassium Gluconate 500 mg PO DAILY 07/12/18 Vitamin B Complex [B Complex] 1 each PO DAILY 07/12/18 History of Present Illness History of Present Illness: ADELAIDA CANO is a 58 year old black male patient with past medical history of hypertension and colon cancer status post resection presented with chief complaint of 2 weeks history of shortness of breath precipitated by exertion. Shortness of breath gets worsening the last 1 week. He has also intermittent chest tightness. His blood work shows markedly reduced hemoglobin of 3.8. His stool for occult blood is also turned positive. His chest x-ray is unremarkable. CT scan of the abdomen with contrast is pending. Otherwise deepa abernathy denied any chills fever cough palpitation or diaphoresis. No nausea vomiting or abdominal pain. He has dizziness but no headache or blurry vision. No seizure activity. Hospital Course Hospital Course: This is 58 years old black male patient who presented with chronic history of shortness of breath precipitated by exertion. Patient does not have any underlying cardiac or pulmonary disease. His past medical history significant for hypertension and early stage colon CA status post partial colectomy which was done 2 years ago. He states that he is "cancer free". At presentation his hemoglobin is 3.8 and after 3 units of PRBC his hemoglobin picked up to 7.3. He is a stool for occult blood is positive. Dr. Holley has evaluated the patien t and schedule him for upper endoscopy and colonoscopy tomorrow. I seen patient resting in bed comfortably. He reports his shortness of breath has relatively improved. His hemoglobin increased to 10 from 3.8 after he gets 4 units of packed RBC. Morning patient undergone upper and lower endoscopy. Reportedly both are negative for bleeding. The colonoscopy also reported no sign of recurrence of his colon CA. 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 Physical Exam Vital Signs: Temp Pulse Resp BP Pulse Ox 98.7 F 65 16 163/88 H 97 07/14/18 10:59 07/14/18 10:59 07/14/18 10:59 07/14/18 10:59 07/14/18 10:23 Intake & Output 07/13/18 07/14/18 07/15/18 06:59 06:59 06:59 Intake Total 790 900 250 Output Total 400 400 Balance 390 500 250 Weight 123.6 kg 122.4 kg General appearance: PRESENT: no acute distress, well-developed, well-nourished Head exam: PRESENT: atraumatic, normocephalic Eye exam: PRESENT: conjunctiva pink, EOMI, PERRLA. ABSENT: scleral icterus Ear exam: PRESENT: normal external ear exam Mouth exam: PRESENT: moist, tongue midline Neck exam: ABSENT: carotid bruit, JVD, lymphadenopathy, thyromegaly Respiratory exam: PRESENT: clear to auscultation franklin. ABSENT: rales, rhonchi, wheezes Cardiovascular exam: PRESENT: RRR. ABSENT: diastolic murmur, rubs, systolic murmur Pulses: PRESENT: normal dorsalis pedis pul Vascular exam: PRESENT: normal capillary refill GI/Abdominal exam: PRESENT: normal bowel sounds, soft. ABSENT: distended, guarding, mass, organolmegaly, rebound, tenderness Rectal exam: PRESENT: deferred Extremities exam: PRESENT: full ROM. ABSENT: calf tenderness, clubbing, pedal edema Neurological exam: PRESENT: alert, awake, oriented to person, oriented to place, oriented to time, oriented to situation, CN II-XII grossly intact. ABSENT: motor sensory deficit Psychiatric exam: PRESENT: appropriate affect, normal mood. ABSENT: homicidal ideation, suicidal ideation Skin exam: PRESENT: dry, intact, warm. ABSENT: cyanosis, rash Results Laboratory Results: 07/14/18 06:28 07/13/18 05:17 0507/[id number] 07/14/18 15:10 17:26 06:28 WBC 5.6 5.5 RBC 3.62 L 3.87 L Hgb 8.7 L 9.3 L Hct 27.3 L 28.9 L MCV 75 L 75 L MCH 23.9 L 24.0 L MCHC 31.8 L 32.1 RDW 23.1 H 23.3 H Plt Count 300 329 Seg Neutrophils % Not Reportable Lymphocytes % Not Reportable Monocytes % Not Reportable Eosinophils % Not Reportable Basophils % Not Reportable Absolute Neutrophils Not Reportable Absolute Lymphocytes Not Reportable Absolute Monocytes Not Reportable Absolute Eosinophils Not Reportable Absolute Basophils Not Reportable Blood Type O POSITIVE Antibody Screen NEGATIVE 07/12/18 15:10 Troponin I < 0.012 NT-Pro-B Natriuret Pep 304 Impressions: Abdomen/Pelvis CT 07/12/18 00:00 IMPRESSION: 1. Ventral hernia containing small bowel loops but without bowel obstruction or incarceration. 2. Query mild inflammatory changes surrounding the urinary bladder; correlate with urinalysis to exclude UTI. 3. Moderate sliding hiatal hernia. Chest X-Ray 07/12/18 14:23 IMPRESSION: 1. No acute radiographic finding in the chest. 2. Moderate size hiatal hernia. Renal Ultrasound 07/13/18 00:00 IMPRESSION: No hydronephrosis, normal size kidneys with grossly normal cortical thickness and echogenicity Qualifiers - * PATIENT BEING DISCHARGED WITH ANY OF THE FOLLOWING DIAGNOSIS: No Acute Heart Failure Is this a Heart Failure Patient?: No
[2018-07-14] MEDS ORDERED: METOPROLOL TARTRATE 100 MG TABLET PO ONE (15:30)
[2018-07-14 15:42] VITALS: BP 157/87
[2018-07-15 13:55] LABS: PATH REVIEW PATHOLOGIST REVIEWED
== END 2018-07-14 16:00 | disposition home or self-care (01) | DRG 812 ==
LOC: ER 13:10 → EH 18:27 → 5 21:54
PROVIDERS: ADMIT Internal Medicine; ATTEND Internal Medicine
PROC: 30233N1 Transfusion of Nonautologous Red Blood Cells into Peripheral Vein, Percutaneous Approach (ICD-10-PCS; 2018-07-12)
PROC: 0DJ08ZZ Inspection of Upper Intestinal Tract, Via Natural or Artificial Opening Endoscopic (ICD-10-PCS; principal; 2018-07-14 08:30)
PROC: 0DJD8ZZ Inspection of Lower Intestinal Tract, Via Natural or Artificial Opening Endoscopic (ICD-10-PCS; 2018-07-14 08:30)
DX: D62 Acute posthemorrhagic anemia (principal); K92.2 Gastrointestinal hemorrhage, unspecified; D50.0 Iron deficiency anemia secondary to blood loss (chronic); I10 Essential (primary) hypertension; E66.9 Obesity, unspecified; K44.9 Diaphragmatic hernia without obstruction or gangrene; N40.0 Benign prostatic hyperplasia without lower urinary tract symptoms; Z85.038 Personal history of other malignant neoplasm of large intestine; Z90.49 Acquired absence of other specified parts of digestive tract; Z79.899 Other long term (current) drug therapy; Z87.891 Personal history of nicotine dependence; Z79.82 Long term (current) use of aspirin; Z82.3 Family history of stroke; Z80.42 Family history of malignant neoplasm of prostate
CPT/HCPCS: 36415; 36430; 43235; 45378; 71046; 74177; 76770; 80048; 80053; 80061; 82570; 83036; 83880; 84300; 84484; 85025; 85027; 85610; 85730; 86850; 86900; 86901; 86920; 93005; 93010; 99291; J0171; J0360; J1200; J1610; J1940; J2250; J2310; J2405; J3010; J3490; P9016; S0164